=== PATIENT | female | born 1955 | race Caucasian/White ===

== ENCOUNTER 2025-02-12 08:35 | Day surgery (SDC) | payer MEDICARE, OTHER ==
[~2025-02-12] VITALS: Ht 167.6 cm; Wt 83.7 kg
[2025-02-12] MEDS: CEFUROXIME 1 MG/0.1 ML INTRACAMERAL INJ As Ordered ONE (07:00)
[2025-02-12] MEDS: BSS IRRIG/VANCO(10MG)/TOBRA(5MG)/EPINEPH(1:1000-0.5CC)500ML BAG-ORONLY As Ordered ONE (07:15)
[~2025-02-12 08:35] MED LIST: ASPI81TA26 PO; ATEN25TA PO; BUSP1TAB PO; JANU100T PO; LEXA1TAB2 PO; METF10004 PO; MIDAZOLAM INJ 2 MG/2 ML VIAL As Ordered ONE; MONT10TA97 PO; PHENYLEPHRINE 10% OPHTH SOL 5ML OD PRN; ROSU40TA81 PO; SYNT75TA PO
[2025-02-12] MEDS: LIDOCAINE 3.5% 1 ML OPHTH TOPICAL GEL OU ONE (11:38)
[2025-02-12] MEDS: OFLOXACIN 0.3 % (OCUFLOX) OPTH SOL 5ML OD ONE (11:38)
[2025-02-12] MEDS: CYCLOPENTOLATE 1% OPHTH SOLN 2 ML BTL OD SCH (11:39)
[2025-02-12] MEDS: PHENYLEPHRINE 2.5% OPHTH SOL 2ML OD SCH (11:39)
[2025-02-12] MEDS: TROPICAMIDE 1% OPHTH SOLN 15ML OD SCH (11:39)
[2025-02-12] MEDS: LIDOCAINE 1% SDV 5 ML VIAL As Ordered ONE (12:25)
[2025-02-12 12:33] VITALS: BP 128/60; TEMP 97.1; O2SAT 96
== END 2025-02-12 12:48 | disposition home or self-care (01) ==
LOC: M SDC 08:35
PROVIDERS: ATTEND Ophthalmology
DX: H25.11 Age-related nuclear cataract, right eye (principal); I48.91 Unspecified atrial fibrillation; E11.9 Type 2 diabetes mellitus without complications; J30.2 Other seasonal allergic rhinitis; Z91.040 Latex allergy status; Z79.899 Other long term (current) drug therapy
CPT/HCPCS: 66984; J0697; J2250; J3010; V2632

== ENCOUNTER 2025-02-19 09:19 | Day surgery (SDC) | payer MEDICARE, OTHER ==
[~2025-02-19] VITALS: Ht 167.6 cm; Wt 84.6 kg
[~2025-02-19 09:19] MED LIST changes: -MIDAZOLAM INJ 2 MG/2 ML VIAL As Ordered ONE; -PHENYLEPHRINE 10% OPHTH SOL 5ML OD PRN; +PHENYLEPHRINE 10% OPHTH SOL 5ML OS PRN
[2025-02-19] MEDS ORDERED: MIDAZOLAM INJ 2 MG/2 ML VIAL As Ordered ONE (09:58)
[2025-02-19] MEDS ORDERED: LIDOCAINE 3.5% 1 ML OPHTH TOPICAL GEL OU ONE (10:40)
[2025-02-19] MEDS ORDERED: OFLOXACIN 0.3 % (OCUFLOX) OPTH SOL 5ML OS ONE (10:40)
[2025-02-19] MEDS ORDERED: PHENYLEPHRINE 2.5% OPHTH SOL 2ML OS SCH (10:40)
[2025-02-19] MEDS ORDERED: TROPICAMIDE 1% OPHTH SOLN 15ML OS SCH (10:40)
[2025-02-19] MEDS ORDERED: CYCLOPENTOLATE 1% OPHTH SOLN 2 ML BTL OS SCH (10:40)
[2025-02-19] MEDS: BSS IRRIG/VANCO(10MG)/TOBRA(5MG)/EPINEPH(1:1000-0.5CC)500ML BAG-ORONLY As Ordered ONE (11:16)
[2025-02-19] MEDS: CEFUROXIME 1 MG/0.1 ML INTRACAMERAL INJ As Ordered ONE (11:16)
[2025-02-19] MEDS: LIDOCAINE 1% SDV 5 ML VIAL As Ordered ONE (11:16)
[2025-02-19 11:28] VITALS: BP 109/64; TEMP 97.3; O2SAT 96
== END 2025-02-19 11:41 | disposition home or self-care (01) ==
LOC: M SDC 09:19
PROVIDERS: ATTEND Ophthalmology
DX: H25.12 Age-related nuclear cataract, left eye (principal); I48.91 Unspecified atrial fibrillation; E11.9 Type 2 diabetes mellitus without complications; J30.1 Allergic rhinitis due to pollen; Z91.040 Latex allergy status; Z98.41 Cataract extraction status, right eye
CPT/HCPCS: 66984; J0697; J2250; J3010; V2632